=== PATIENT | male | born 1980 | race Caucasian/White ===

== ENCOUNTER 2018-09-18 15:15 | Emergency (ER) | payer OTHER ==
[~2018-09-18] VITALS: Ht 160 cm; Wt 83.9 kg
[2018-09-18] MEDS ORDERED: NAPROSYN500 MG PO (15:36)
[2018-09-18 16:04] VITALS: BP 143/74
--- NOTE | 2018-09-19 08:49 | EKG ---
[address] [address] [place] [address] ELECTROCARDIOGRAM REPORT Name: VICTOR MANUEL MUÑIZ Room #: [facility] Ye#: [id number] Admission: 09/18/18 Attend Phys: Discharge: 09/18/18 Date of : 76 Report #: [id number] THIS REPORT FOR: //name// [facility] ED Test Date: 2018-09-18 Test Time: 15:44:19 Pat Name: VICTOR MANUEL MUÑIZ Department: Room: Gender: Food Scientist: Eriberto ARANDA : 1980 Requested By: Stevan Starkey Order Number: [id number] MD: Christiano Rudd Measurements Intervals [place] Rate: 95 P: 35 MT: 129 QRS: 38 QRSD: 87 T: 15 QT: 349 QTc: 439 Interpretive Statements Sinus rhythm ST elev, probable normal early repol pattern No previous ECG available for comparison Electronically Signed On 09-19-2018 8:49:39 [employer] by Christiano Rudd [email or web address] <ELECTRONICALLY SIGNED> By: Christiano Rudd MD, [facility] 09/19/18 0849 [id number] Christiano Rudd MD, FACC /EPI
== END 2018-09-18 15:55 | disposition home or self-care (01) ==
LOC: ER 15:15
DX: S70.12XA Contusion of left thigh, initial encounter (principal); F43.0 Acute stress reaction; Y00.XXXA Assault by blunt object, initial encounter; Y93.89 Activity, other specified; Y92.89 Other specified places as the place of occurrence of the external cause; Y99.8 Other external cause status